=== PATIENT | male | born 1955 | race African-American/Black ===

== ENCOUNTER 2017-01-02 13:04 | Inpatient (IN) | payer OTHER ==
[~2017-01-02] VITALS: Ht 177.8 cm; Wt 76.7 kg
--- NOTE | ~2017-01-02 | HC ---
[facility] [place] [address] CONSULTATION Name: CARLOS BROWN JR Room #: 432-P ADM IN M.R.#: [id number] Admission: 01/02/17 Attend Phys: Doyle Choi MD Discharge: Date of : 53 Report #: [id number] THIS REPORT FOR: //name// CC: Doyle Choi [facility] physician/PCP REASON FOR CONSULTATION: Questionable renal infarct. REASON FOR ADMISSION: Abdominal pain. HISTORY OF PRESENT ILLNESS: The patient is a 61-year-old -Belizean male patient started to have diffuse abdominal pain this morning. This was worsening, not responding to numerous pain medications. He is known to have diabetes mellitus and hypertension. There are no reported hematochezia or melena with abdominal pain. No previous similar episodes. He is known to have remote history of pancreatitis and nephrolithiasis. He is also known to have alcohol abuse and liver hemangioma. He denies any drug abuse. He has an AICD placed in the past. On presentation to the Emergency Room, the CT scan was done under the possibility of renal infarct on the right side. The patient denies any hematuria. There is no history of hypercoagulable status. 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 He is also known to have AICD with a defibrillator placed. There was an issue of noncompliance in the past; however, the patient stated that he is very compliant with his medical care. Sees his primary care physician at the [facility]. He is not aware of any previous or current family history of hypercoagulable conditions. PAST MEDICAL HISTORY: 1. Hypertension. 2. Diabetes mellitus. 3. Alcoholic pancreatitis. 4. Cardiomyopathy with a pacemaker placement. 5. Nephrolithiasis. 6. Chronic obstructive pulmonary disease. 7. Liver hemangioma. 8. Kidney . ALLERGIES: No known drug allergies. SOCIAL HISTORY: He continues to smoke a pack a day. He did admit to marijuana use. REVIEW OF SYSTEMS: GENERAL: No fever or chills. CARDIOVASCULAR: No chest pain or palpitation. PULMONARY: No cough or hemoptysis. GASTROINTESTINAL: As per the history of present illness. [address] [address] CONSULTATION Name: CARLOS BROWN Room #: 432-P [facility] IN M.R.#: [id number] Admission: 01/02/17 Attend Phys: Doyle Choi MD Discharge: Date of : 53 Report #: [id number] GENITOURINARY: No frequency, no urgency or hematuria. MUSCULOSKELETAL: No back pain. No morning stiffness. SKIN: No rash. NEUROLOGICAL: No syncopal events. HEMATOLOGICAL: No previous history of DVT or PE or other hypercoagulable conditions. CURRENT MEDICATIONS: 1. Losartan. 2. Furosemide. 3. Metformin. 4. Atorvastatin. 5. Glipizide. 6. Carvedilol. FAMILY HISTORY: Significant for diabetes mellitus and hypertension. PHYSICAL EXAMINATION: VITAL SIGNS: Blood pressure is 150/83. HEAD AND NECK: No jugular venous distention, no bruit, no thyromegaly. CHEST: Clear to auscultation bilaterally. CARDIOVASCULAR: Regular with no rub detected. ABDOMEN: Soft, slightly tender, but no hepatosplenomegaly noted. LOWER EXTREMITIES: No edema with intact peripheral pulses. LABORATORY DATA: Reviewed. He does have a slightly elevated hemoglobin with a low platelet. Chemistry from today revealed a sodium of 132. Normal kidney function, glucose of 284 and calcium of 10.2, bilirubin was normal. Lipase was normal. UA and urine drug scan is pending. IMAGING: His abdomen CT were reviewed. ASSESSMENT, IMPRESSION AND PLAN: 1. Splenic infarct. 2. Abdominal pain. 3. Thrombocytopenia. 4. Elevated hemoglobin. 5. Questionable renal infarct.. 6. Remote history of alcohol abuse. 7. Hypertension. 8. Diabetes mellitus. 9. I personally reviewed the CT scan and I am not really sure about the patient's clinical presentation. 10. I will initiate the appropriate workup for the renal infarct including CPK, LDH, haptoglobin. His platelets was on the low side and this was alarming and could raise the possibility of renal, splenic infarcts. [facility] [address] [place] [address] CONSULTATION Name: CARLOS BROWN Room #: 432-P ADM IN M.R.#: [id number] Admission: 01/02/17 Attend Phys: Doyle Choi MD Discharge: Date of : 53 Report #: [id number] 11. Obtain all hypercoagulable workup. 12. Obtain abdominal ultrasound. 13. Obtain a UA with urine protein to creatinine ratio just in case there has been renal vein movement. 14. MRI, MRA. 15. Further evaluation will be dependent on the studies that I ordered. If this is truly renal infarct, will proceed with a conventional angiogram and or renal scan. 16. I would strongly recommend the urinary drug clean. 17. Obtain hematological consultation. We will continue to follow along. Meanwhile, the patient is being anticoagulated with heparin, all of the hypercoagulable workup will be sent before that. He has a normal kidney function and I see no reason for any IV fluids at this point. <ELECTRONICALLY SIGNED> By: Darrell Martínez MD 01/03/17 0844 13 0646 Cira Gallegos MD /nt
--- NOTE | ~2017-01-02 | HC ---
[facility] [place] [address] CONSULTATION Name: CARLOS BROWN JR Room #: 432-P [facility] IN M.R.#: [id number] Admission: 01/02/17 Attend Phys: Dolye Choi MD Discharge: 01/08/17 Date of : 53 Report #: [id number] THIS REPORT FOR: //name// CC: Doyle Choi [facility] physician/PCP DATE OF SERVICE: 01/04/2017 HISTORY OF PRESENT ILLNESS: The patient is a 61-year-old -Ugandan male who moved here from [place]. I am reviewing some of the old records and he states he has had a history of coronary artery disease. He seems to be of marginal historian. He says he came in with chest pain, but really this was abdominal pain and subsequently, found renal and splenic infarcts. The CAT scan suggests that there is an apical thrombus. The echo did not reveal this. I will review the echo, at least the initial report. It looks like he has had some wall motion abnormality. He states he had a limited infarct and 3 stents were placed in [facility]. 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 Apparently, he has been compliant with his medications. He denies chest pain or anginal complaints. His EKG shows sinus rhythm with possible anterolateral infarct. Left axis deviation. HOME MEDICATIONS: Losartan, Lasix, metformin, glipizide, Coreg and atorvastatin. Currently, his medications are metformin and glipizide 500 b.i.d. and 10. LABORATORY DATA: His creatinine is 0.8. His potassium is 3.7. Glucose is 220. Liver function tests were normal. His troponin was not performed. Lipids were favorable with an LDL of 97. Cholesterol 189, screen was positive for the opiates. H and H were 16 and 48, white count 6.3, platelets were 130. CT scan of the head was negative. Ultrasound of the carotids, no significant stenosis. CTA of the chest and abdomen suggest possibly an apical thrombus, dilated left ventricle, the echo Doppler, I will rereview, but did not suggest significant apical thrombus, multiple wall motion abnormality, anterior apical hypokinesis, EF was 30-35%, left atrium was dilated. There was an ICD lead present. PAST MEDICAL HISTORY: Positive for coronary artery disease with a prior stent. He states anterior infarct, history of alcoholic pancreatitis, history of alcohol abuse now currently minimal, COPD, continued tobacco use, nephrolithiasis, liver hemangioma, diabetes, ICD placement. ALLERGIES: No known drug allergies. SOCIAL HISTORY: He is an active smoker. He did quit alcohol abuse history. He is retired from [email or web address]. FAMILY HISTORY: Negative for premature coronary disease or clotting disorder. [facility] [address] [place] [address] CONSULTATION Name: CARLOS BROWN Room #: 432-P DIS IN M.R.#: [id number] Admission: 01/02/17 Attend Phys: Doyle Choi MD Discharge: 01/08/17 Date of : 53 Report #: [id number] PHYSICAL EXAMINATION: GENERAL: He is pleasant, alert. He seems appropriate. VITAL SIGNS: Blood pressure 140/84, pulse 70s. HEENT: Eyes reveal xanthelasmas. Pharynx is clear. NECK: Shows preserved upstrokes without JVD or bruits. LUNGS: Clear. CARDIOVASCULAR: Regular rate and rhythm, S1, S2. There is a faint holosystolic murmur. ABDOMEN: Soft. No HSM or abdominal bruit, slightly tender in the left upper quadrant. EXTREMITIES: Reveal trace of nonpitting edema. NEUROLOGIC: Nonfocal. SKIN: Warm and dry without xanthoma or ulcer. MUSCULOSKELETAL: No gross joint deformity. ASSESSMENT: 1. The renal and splenic infarcts of unclear etiology. 2. Suspected thromboembolic events, possibly secondary to a left ventricular apical clot. However, need to review echo, may in fact need PAMELLA, but this is holiday weekend and that will not occur until Friday. In the interim, we would continue with the anticoagulation, which is indicated at this point. 3. Hypertension. 4. Hypercholesterolemia. 5. Coronary artery disease with history of prior stents and infarct. 6. Chronic obstructive pulmonary disease. 7. History of alcohol abuse. RECOMMENDATIONS AND PLAN: Also awaiting further workup for coagulation disorder, coagulopathy by Dr. Bella of Hematology. I would continue heparin drip for now. I will review the echo performed 2 days ago. Thank you for on assist care of this patient. <ELECTRONICALLY SIGNED> By: Parker Vazquez MD, FACC 01/13/17 1544 1047 08 Parker Vazquez MD, FACC /nt
--- NOTE | ~2017-01-02 | HC ---
[facility] [place] [address] CONSULTATION Name: CARLOS BROWN JR Room #: 432-P ADM IN M.R.#: [id number] Admission: 01/02/17 Attend Phys: Doyle Choi MD Discharge: Date of : 53 Report #: [id number] THIS REPORT FOR: //name// CC: Cira Ronquillo MD [facility] physician/PCP Rodriguez Horta PRIMARY CARE DOCTOR: Dr. Rodriguez Horta at [facility] REASON FOR CONSULTATION: Possible splenic and renal infarcts. HISTORY OF PRESENT ILLNESS: The patient is a very pleasant 61-year-old gentleman originally from [place], [place] who moved up here as an with his family. He is now retired. Yesterday during the day, he had fairly sudden onset of diffuse frontal abdominal pain. It was across whole abdomen and is constant. He did not have cramping the the pain did not move across like a gas bubble. He felt it was much more to the front than to the back, unchanged by respiration, defecation, urination, change in position, leg lifting, or walking. It maybe about the center but maybe feels like it is a little bit higher in the abdomen, maybe almost going up to the epigastric region. Notes in the ER yesterday, he as part of his workup had a CAT scan, which raises a question for splenic infarct. Specifically, the test is compared to 06/29/2016, that showed cardiac prominences seen with pacemaker electrodes with mild bibasilar atelectasis. The liver showed fatty infiltrates with numerous hemangiomas. The spleen showed 2 wedge-shaped infarcts with decreased enhancement that were not present previously, and these were upon the lateral superior spleen suggesting splenic infarcts. Gallbladder contracted with no bile duct dilatation. Pancreas, no acute changes. Adrenals, normal size. Kidneys had perinephric stranding seen about the kidneys, also a moderate wedge-shaped area of decreased enhancement in the upper posterior aspect of the right kidney consistent with a renal infarct. Upper pole renal cyst on the right is suggested. Small non-obstructing calculus is seen in the lower pole of the left kidney. Retroperitoneal, there is aortic plaqueing without aneurysm or adenopathy. Bowel, there is no focal inflammatory changes, obstruction or bowel wall thickening or other acute process. No free air ascites, abscess or acute changes. Bladder looked fairly normal. Bones also showed no bony abnormalities. Prostate was enlarged. Inguinal canal slightly distended with fat suggesting small hernias. LABORATORY DATA: Admission labs tests are also notable for a white count 5.5, hemoglobin of 18.3, MCV of 91.7, hematocrit of 54.9, platelets 138. Differential normal. Repeat CBC shows normalization with a white count of 6.4, hemoglobin 17.5, hematocrit 51.9, and platelets of 154. Chemistries on admission shows BUN of 7, creatinine 0.7. calcium 9.4, ALT low at 16, [address] [address] CONSULTATION Name: CARLOS BROWN JR Room #: 432-P ADM IN M.R.#: [id number] Admission: 01/02/17 Attend Phys: Doyle Choi MD Discharge: Date of : 53 Report #: [id number] , albumin 3.4. Total bilirubin 0.1 Lactic acid 1.6. LDH 209. REVIEW OF SYSTEMS: The patient denies headache, visual changes, mentation difficulties that he is aware of, swallowing troubles, hearing difficulties, any significant weight change, any arm or leg swelling, any blood in his urine or stool, any dysuria, any diarrhea, any constipation, any new skin rash. PAST MEDICAL HISTORY: Reportedly for hypertension, diabetes mellitus, history of alcoholic pancreatitis, history of cardiomyopathy with a pacemaker placement, history of nephrolithiasis, history of COPD, liver hemangiomas and renal stones, nonobstructing. SOCIAL HISTORY: The patient is originally from [place], [place]. He lives here in town. 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 He smokes a pack per day. Does drink rare alcohol, but did not drink half of it several days ago, had drank heavily in the past, no street drugs. FAMILY HISTORY: Denies any history of cancer or blood abnormalities in mother, father, brother, sisters. Does have 2 children that are alive and well. At home, he has a . ALLERGIES: None known. MEDICATIONS: At this time in the hospital include heparin drip, ceftriaxone 1 g q. 24 hours, morphine sulfate p.r.n., ketorolac 1 time. Other tests ordered at this time pending include an echocardiogram, ultrasound of the renal Doppler, ultrasound carotids, ultrasound of both lower extremities. There may also be an MRI and MRA abdomen ordered. Also anti-nuclear antibody test, cardiolipin antibodies, homocysteine, factor V Leiden, anti-thrombin III, protein C functional, protein S. PHYSICAL EXAMINATION: VITAL SIGNS: Height is 5 feet 10, 178 cm; weight 169 pounds, which is 76.8 kilograms. Blood pressure is 127/60, O2 sat 98, respirations 16, pulse is 83, and temperature afebrile at 98.3. GENERAL: Mood of the patient is alert and pleasant. NEUROLOGIC: The patient's face is symmetrical. He is moving all extremities. Speech pattern is normal, though he is somewhat quiet. Oropharynx seemed clear. LUNGS: Clear, symmetric respirations without rhonchi, rales, or wheezes. HEART: Regular rate. ABDOMEN: Slightly obese, slightly generalized tender, no masses. Also, slight discomfort on rib compression, no pain on leg raise. NEUROLOGIC: Sensation normal to confrontation. Lcsw strength normal. [facility] [address] [place] [address] CONSULTATION Name: CARLOS BROWN JR Room #: 432-P [facility] IN [facility]#: [id number] Admission: 01/02/17 Attend Phys: Doyle Choi MD Discharge: Date of : 53 Report #: [id number] ASSESSMENT AND PLAN: 1. Interval splenic and possible renal infarct since June. Agree with workup that is including ultrasound of carotids, renal and also possible MRA abdomen. Also agree with use of heparin, anticoagulant workup. We will also add a dRVVT. No obvious source at this time. We will also write echo. May also need transesophageal echocardiogram. 1. Splenic and renal infarcts. Agree with workup as above. We will also add dRVVT. Agree with heparin anticoagulation at this point. 2. Questionable erythrocytosis, appears resolved after hydration. We will check an erythropoietin level but most likely this is secondary and not causing his infarcts. 3. History of hypertension, we will likely need to continue losartan, furosemide. 4. History of diabetes. We will likely need to continue metformin or other agents. Also, we will need to reinitiate glipizide at some point. 5. Hyperlipidemia. We will likely need to continue statin. 6. History of cardiomyopathy, has a pacemaker. Will also likely need to continue losartan and carvedilol. 7. Pain. Continue opiate pain meds. We will follow with you. <ELECTRONICALLY SIGNED> By: Franklin Bella MD 01/04/17 0709 0754 2041 Franklin Bella MD /nt
--- NOTE | ~2017-01-02 | EKG ---
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 : 1955 Requested By: Doyle Choi Order Number: [id number] MD: Howie Desai Measurements Intervals [place] Rate: 78 P: 70 WA: 196 QRS: -70 QRSD: 142 T: 99 QT: 407 QTc: 464 Interpretive Statements Sinus rhythm with ventricular pacing Compared to ECG 10/06/2015 05:04:22 Ventricular pacing is now present Electronically Signed On 01-05-2017 13:49:37 CDT by Howie Desai [email or web address] <ELECTRONICALLY SIGNED> By: Howie Desai MD, [facility] 01/05/17 1349 1610 1610 Howie Desai MD, [facility] /EPI
--- NOTE | ~2017-01-02 | H ---
[facility] [place] [address] HISTORY AND PHYSICAL Name: CARLOS BROWN JR Room #: 432-P ADM IN M.R.#: [id number] Admission: 01/02/17 Attend Phys: Doyle Choi MD Discharge: Date of : 53 Report #: [id number] THIS REPORT FOR: //name// CC: Doyle Choi [facility] physician/PCP DATE OF SERVICE: 01/02/2017 REASON FOR ADMISSION: Abdominal pain. HISTORY OF PRESENT ILLNESS: The patient is a pleasant 61-year-old gentleman. He reports he was in his usual state of health yesterday. Today, he started experiencing rather sudden onset abdominal pain located across his entire abdomen. He is fairly uncomfortable when seen by me today and continues to complain of abdominal pain despite receiving pain medication in the Emergency Room. He denies fevers, chills, nausea, diarrhea, dizziness, headaches, chest pain, skin rashes or other problems. He reports he has not been very compliant with his medications including aspirin. He does report he had a bowel movement earlier in the day, which was formed and normal. He denies any dysuria. He denies any blood in his stool or urine. His CT in the Emergency Room was concerning for splenic and renal infarcts and he has been admitted for further workup and treatment of his problems. PAST MEDICAL HISTORY: 1. Significant for diabetes. 2. Coronary artery disease. 3. History of pancreatitis. 4. Hypertension. 5. Alcoholism and alcohol abuse. 6. Liver hemangioma. 7. Early COPD. 8. Nephrolithiasis. PAST SURGICAL HISTORY: AICD placement. MEDICATIONS: Med rec presently unavailable. ALLERGIES: No known drug allergies. SOCIAL HISTORY: Active smoker about a pack a day, daily alcohol use. Reports he drank about half a can of beer yesterday. Denies any drug use. FAMILY HISTORY: Denies any significant history of blood clots in the family. REVIEW OF SYSTEMS: Twelve-point review of systems performed, negative except as mentioned in the history of present illness. [facility] [address] [place] [address] HISTORY AND PHYSICAL Name: CARLOS BROWN Room #: 432-P [facility] IN M.R.#: [id number] Admission: 01/02/17 Attend Phys: Doyle Choi MD Discharge: Date of : 53 Report #: [id number] PHYSICAL EXAMINATION: VITAL SIGNS: Afebrile, pulse of 86, respiratory rate 16, O2 sat 99% on room air, blood pressure is 152/86. GENERAL: Awake, alert, no acute distress. HEENT: Unremarkable. NECK: No JVD or thyromegaly. CARDIOVASCULAR: S1, S2 present, regular. RESPIRATORY: Air entry present bilaterally. ABDOMEN: Soft, tender to palpation all over without obvious guarding or rebound. Bowel sounds present. EXTREMITIES: Without edema. NEUROLOGIC: Awake, alert. No acute focal findings. SKIN: Unremarkable. No rash or lesions. LABORATORY INVESTIGATIONS: CBC notable for polycythemia. Hemoglobin is 18.3 as well as thrombocytopenia, platelets of 138. Differential appears to be within normal range. Chemistry with mild hyponatremia 132. Glucose elevated 284, calcium minimally elevated at 10.2. Urinalysis is pending. Tox screen with alcohol level less than 10. Imaging with an abdominal and pelvis CT demonstrates several splenic infarcts in the upper lateral spleen as well as renal infarct and possible right-sided pyelonephritis. ASSESSMENT AND PLAN: This is a 61-year-old gentleman presenting with abdominal pain of unclear etiology. 1. Abdominal pain. The patient does have a history of pancreatitis; however, does not have lab or CT evidence of the same at the present time. His pain is not clearly in the same location as infarcts noted on his CT. It is unclear if he may be having mesenteric ischemia or other contributing symptoms and we will try and proceed with further evaluation for the same as delineated below. 2. Splenic and renal infarcts concerning for thromboembolic source. The patient also has noted to be polycythemic which may be in relation to his longstanding smoking and COPD; however, this appears to be recently progressive. We will also involve hematology hence to opine on this and start the patient on a heparin infusion for the present time. An echocardiogram, carotid Dopplers and lower extremity Dopplers will be performed. We will also involve Vascular Surgery in his scan, try to attempt an MRA of his abdomen to assess for mesenteric ischemia and/or an embolic phenomena. 3. Diabetes. We will place the patient on sliding scale coverage. 4. Alcoholism. No present signs of alcohol withdrawal. 5. Coronary artery disease with in situ defibrillator. We will obtain an EKG. He does not have chest pain; however, does appear to have a questionable ST changes noted on lead in the Emergency Room. [address] [address] HISTORY AND PHYSICAL Name: CARLOS BROWN JR Room #: 432-[facility] IN M.R.#: [id number] Admission: 01/02/17 Attend Phys: Doyle Choi MD Discharge: Date of : 53 Report #: [id number] 6. Deep venous thrombosis prophylaxis unnecessary as he will be on full dose anticoagulation. <ELECTRONICALLY SIGNED> By: Doyle Choi MD 01/03/17 1142 1657 51 Doyle Choi MD /nt
--- NOTE | ~2017-01-02 | 2DMMODE ---
[facility] [address] [place] [address] 2 D/M-MODE ECHOCARDIOGRAM Name: CARLOS BRWON JR Room #: 432-P [facility] [place] .#: [id number] Admission: 01/02/17 Attend Phys: Doyle Choi, Discharge: Date of : 53 Date of Service: 01/03/17 1139 Report #: [id number] THIS REPORT FOR: //name// APPROVED REPORT Study performed: 01/03/2017 09:38:01 EXAM: Comprehensive 2D, Doppler, and color-flow Echocardiogram Patient Location: In-Patient Room #: 432 Status: routine Other Information Study Quality: Good Indications COPD Diabetes CAD Hypertension/HDD Echo Enhancing Agent Indication: Rule out thrombus Agent(s) / Amount(s) Used: Definity 3 cc 2D Dimensions RVDd: 42.27 mm LVEF(%): 34.90 (>50%) IVSd: 9.69 (7-11mm) LVOT Diam: 21.61 (18-24mm) LVDd: 61.49 mm PWd: 11.94 (7-11mm) LVDs: 51.02 (25-40mm) Aortic Root: 33.57 mm Reyes's LVEF: 34.90 % Volumes Left Atrial Volume (Systole) Single Plane 4CH: 62.23 mL Single Plane 2CH: 65.41 mL LA ESV Index: 37.00 mL/m2 Aortic Valve AoV Peak Peter.: 1.40 m/s AO Peak Gr.: 7.89 mmHg LVOT Max P.14 mmHg LVOT Max V: 0.89 m/s JEFE Vmax: 2.31 cm2 [facility] [address] [place] [address] 2 D/M-MODE ECHOCARDIOGRAM Name: CARLOS BROWN JR Room #: 432-P [facility]#: [id number] Admission: 01/02/17 Attend Phys: Doyle Choi, Discharge: Date of : 53 Date of Service: 01/03/17 1139 Report #: [id number] Mitral Valve E/A Ratio: 0.7 MV Decel. Time: 229.02 ms MV E Max Peter.: 0.59 m/s MV A Peter.: 0.80 m/s MV PHT: 66.41 ms IVRT: 115.34 ms Pulmonary Valve PV Peak Peter.: 1.15 m/s PV Peak Gr.: 5.25 mmHg Pulmonary Vein P Vein S: 0.47 m/s P Vein D: 0.35 m/s P Vein S/D Ratio: 1.34 Tricuspid Valve TR Peak Peter.: 2.47 m/s RAP Estimate: 5.00 mmHg TR Peak Gr.: 24.47 mmHg RVSP: 30.00 mmHg Left Ventricle The left ventricle is normal size. There is normal left ventricular wall thickness. Left ventricular systolic function is mild to moderately decreased. LVEF is 30-35%. with multiple segmental wall abnormalities Grade I - abnormal relaxation pattern. Right Ventricle Right ventricle is at the upper limits of normal. The right ventricular systolic function is normal. Device lead is present in the right ventricle. Atria Left atrium is dilated. Right atrium is at the upper limits of normal. AICD lead is present in the right atrium. Aortic Valve Aortic valve is mildly calcified. Trace aortic regurgitation. There is no aortic valvular stenosis. Mitral Valve The mitral valve is normal in structure. Trace mitral regurgitation. No evidence of mitral valve stenosis. Tricuspid Valve The tricuspid valve is normal in structure. Trace tricuspid [address] [address] 2 D/M-MODE ECHOCARDIOGRAM Name: CARLOS BROWN Room #: 432-P [facility] .R.#: [id number] Admission: 01/02/17 Attend Phys: Doyle Choi, Discharge: Date of : 53 Date of Service: 01/03/17 1139 Report #: [id number] regurgitation. Pulmonic Valve The pulmonary valve is normal in structure. Trace pulmonic regurgitation. Great Vessels The aortic root is normal in size. IVC is normal in size and collapses >50% with inspiration. Pericardium There is no pericardial effusion. <Conclusion> The left ventricle is normal size. LVEF is 30-35%. with multiple segmental wall abnormalities Left atrium is dilated. Right atrium is at the upper limits of normal. AICD lead is present in the right atrium. Aortic valve is mildly calcified. Trace aortic regurgitation. The mitral valve is normal in structure. Trace mitral regurgitation. The tricuspid valve is normal in structure. The pulmonary valve is normal in structure. The aortic root is normal in size. <ELECTRONICALLY SIGNED> By: Juan Clark MD 01/03/17 1139 1139 1139 Juan Clark MD /INF
[~2017-01-02 13:04] MED LIST: ACETAMINOPHEN325 M1 PO; ASPIRIN325 PO; ATORVASTATIN CA40 MG PO; CARVEDILOL12.5 MG PO; CLEOCIN HCL150 MG PO; COZAAR100 MG PO; DIABETA 1.25M1.25 M1 PO; FUROSEMIDE 20 M20 M1 PO; FUROSEMIDE 40 M40 M1 PO; GLIPIZIDE ER10 MG PO; GLUCOPHAGE XR750 MG PO; GLUCOPHAGE850 MG PO; IBUPROFEN 800800 M1 PO; K-DUR 20 MEQ T20 MEQ PO; KLOR-CON 1010 MEQ PO; MULTIVITAMINS PO; NORCO 5-325 TA1 EACH PO; ONDANSETRON HCL4 M2 PO; PENICILLIN VK500 M1 PO; PERCOCET 5-3251 EACH PO; PROAIR HFA8.5 GM INH; PROTONIX40 M1 PO; PROTONIX40 M2 PO; TRINATAL ULTRA1 EACH PO; ULTRAM 50MG TAB50 MG PO; VITAMIN B-1100 M1 PO; ZOFRAN ODT4 MG PO; ZOFRAN4 MG PO
[2017-01-02 13:11] VITALS: BP 165/103
[2017-01-02 13:37] LABS: ABSOLUTE NEUTROPHILS 3.7 thou/uL (1.4-8.2); BASOPHILS 0.4 % (0.0-2.0); EOSINOPHILS 1.8 % (0.0-3.0); HEMATOCRIT 54.9 % (42.0-52.0); HEMOGLOBIN 18.3 gm/dL (14.0-18.0); LYMPHOCYTES 22.7 % (24.0-44.0); MCH 30.6 pg (26.0-34.0); MCHC 33.4 g/dL (28.0-37.0); MCV 91.7 fL (80.0-100.0); MONOCYTES 8.6 % (1.0-8.0); PLATELET COUNT 138 thou/uL (150-400); POLYS 66.5 % (36.0-66.0); RBC 5.99 mil/uL (4.50-6.00); RDW 13.3 % (10.5-14.5); WBC 5.5 thou/uL (4.0-11.0)
[2017-01-02 13:40] LABS: MANUAL DIFF NO
[2017-01-02 13:57] LABS: ALBUMIN 3.8 g/dL (3.4-5.0); ALKALINE PHOSPHATASE 70 U/L (46-116); ANION GAP 11 mmol/L (7-16); BUN 5 mg/dL (7-18); CALCIUM 10.2 mg/dL (8.5-10.1); CHLORIDE 98 mmol/L (98-107); CO2 23 mmol/L (21-32); CREATININE 0.8 mg/dL (0.7-1.3); DIRECT BILIRUBIN 0.1 mg/dL (<0.1-0.3); GLUCOSE 284 mg/dL (74-106); POTASSIUM 4.3 mmol/L (3.5-5.1); SGOT 36 U/L (15-37); SGPT 16 U/L (30-65); SODIUM 132 mmol/L (136-145); TOTAL BILIRUBIN < 0.1 mg/dL (<0.1-1.0); TOTAL PROTEIN 8.2 g/dL (6.4-8.2)
[2017-01-02 17:41] VITALS: BP 151/83
[2017-01-02 17:59] LABS: APTT 29.3 Seconds (24.5-32.8); PROTIME 10.8 Seconds (9.3-11.4)
[2017-01-02 18:47] LABS: CHOLESTEROL 189 mg/dL (<200); HDL CHOLESTEROL 68 mg/dL (>40); LDL CHOLESTEROL 97 mg/dL (<100); TC:HDL 2.8 Ratio (Not establshd); TRIGLYCERIDE 121 mg/dL (<150); VLDL 24 mg/dL (<40)
[2017-01-02 20:00] VITALS: BP 156/85
[2017-01-02 21:46] LABS: URINE BILIRUBIN NEGATIVE (Negative); URINE BLOOD TRACE (Negative); URINE COLOR YELLOW; URINE GLUCOSE-RANDOM* 2+ (Negative); URINE KETONES 2+ (Negative); URINE LEUKOCYTES-REFLEX NEGATIVE (Negative); URINE PROTEIN (DIPSTICK) 2+ (Negative); URINE SPECIFIC GRAVITY 1.015 (1.003-1.035); URINE UROBILINOGEN 0.2 E.U./dl (0.2-1.0)
[2017-01-02 21:51] LABS: AMP/METHAMP Negative (Negative); BARBITURATES Negative (Negative); BENZODIAZEPINES Negative (Negative); COCAINE Negative (Negative); METHADONE Negative (Negative); OPIATES POSITIVE (Negative); PCP Negative (Negative); THC Negative (Negative)
[2017-01-02 21:58] LABS: CASTS None Seen /LPF (None Seen); SQUAMOUS 0-3 Few /LPF (0-3); URINE RBC None Seen /HPF (0-2); URINE WBC-REFLEX 0-5 Rare /HPF (0-5)
[2017-01-02 21:59] LABS: CRYSTALS None Seen /LPF (None Seen)
[2017-01-03 02:11] LABS: GLYCOHEMOGLOBIN (HGB A1C) 11.4 % (4.8-5.6)
[2017-01-03 03:13] VITALS: BP 151/86
[2017-01-03 04:09] LABS: URINE PROTEIN-RANDOM* 85.2 mg/dL (Not Estab.)
[2017-01-03 04:17] LABS: HEMATOCRIT 51.9 % (42.0-52.0); HEMOGLOBIN 17.5 gm/dL (14.0-18.0); MCH 30.5 pg (26.0-34.0); MCHC 33.7 g/dL (28.0-37.0); MCV 90.5 fL (80.0-100.0); RBC 5.73 mil/uL (4.50-6.00); RDW 13.4 % (10.5-14.5); WBC 6.4 thou/uL (4.0-11.0)
[2017-01-03 04:25] LABS: ALBUMIN 3.4 g/dL (3.4-5.0); CALCIUM 9.4 mg/dL (8.5-10.1); CREATININE 0.9 mg/dL (0.7-1.3); PHOSPHORUS 3.3 mg/dL (2.5-4.9); POTASSIUM 3.9 mmol/L (3.5-5.1)
[2017-01-03 07:44] VITALS: BP 127/60
[2017-01-03 16:34] VITALS: BP 136/67
[2017-01-03 20:00] VITALS: BP 149/87
[2017-01-03 21:11] LABS: ANTITHROMBIN III 108 % (75-135)
[2017-01-04 04:00] VITALS: BP 121/60
[2017-01-04 06:29] LABS: HEMATOCRIT 48.3 % (42.0-52.0); HEMOGLOBIN 16.3 gm/dL (14.0-18.0); MCH 30.2 pg (26.0-34.0); MCHC 33.7 g/dL (28.0-37.0); MCV 89.6 fL (80.0-100.0); RBC 5.39 mil/uL (4.50-6.00); RDW 13.1 % (10.5-14.5); WBC 6.3 thou/uL (4.0-11.0)
[2017-01-04 06:34] LABS: CALCIUM 9.2 mg/dL (8.5-10.1); CREATININE 0.8 mg/dL (0.7-1.3); POTASSIUM 3.7 mmol/L (3.5-5.1)
[2017-01-04 07:49] VITALS: BP 144/85
[2017-01-04 16:02] VITALS: BP 125/80
[2017-01-04 20:00] VITALS: BP 130/75
[2017-01-05 04:00] VITALS: BP 126/77
[2017-01-05 05:59] LABS: HEMATOCRIT 46.1 % (42.0-52.0); HEMOGLOBIN 15.6 gm/dL (14.0-18.0); MCH 30.6 pg (26.0-34.0); MCHC 33.9 g/dL (28.0-37.0); MCV 90.4 fL (80.0-100.0); RBC 5.1 mil/uL (4.50-6.00); RDW 13.1 % (10.5-14.5); WBC 6.3 thou/uL (4.0-11.0)
[2017-01-05 06:33] LABS: ALBUMIN 2.7 g/dL (3.4-5.0); CALCIUM 9.3 mg/dL (8.5-10.1); CREATININE 0.8 mg/dL (0.7-1.3); POTASSIUM 3.6 mmol/L (3.5-5.1); TOTAL BILIRUBIN 0.7 mg/dL (<0.1-1.0); TOTAL PROTEIN 6.5 g/dL (6.4-8.2)
[2017-01-05 07:54] VITALS: BP 115/70
[2017-01-05 15:32] VITALS: BP 123/77
[2017-01-05 20:00] VITALS: BP 134/80
[2017-01-06 04:30] VITALS: BP 134/82
[2017-01-06 05:52] LABS: INR 1.1; PROTIME 11.4 Seconds (9.3-11.4)
[2017-01-06 07:06] VITALS: BP 132/76
[2017-01-06 14:58] VITALS: BP 121/79
[2017-01-06 20:40] VITALS: BP 130/83
[2017-01-07 04:45] VITALS: BP 122/85
[2017-01-07 07:41] LABS: INR 1.3; PROTIME 13.3 Seconds (9.3-11.4)
[2017-01-07 07:48] LABS: APTT 69.2 Seconds (24.5-32.8)
[2017-01-07 08:24] VITALS: BP 142/92
[2017-01-07 11:05] VITALS: BP 142/92
[2017-01-07 16:04] VITALS: BP 128/68
[2017-01-07 19:35] VITALS: BP 112/71
[2017-01-08 04:52] VITALS: BP 113/70
[2017-01-08 06:28] LABS: INR 1.5; PROTIME 15.3 Seconds (9.3-11.4)
[2017-01-08 08:00] VITALS: BP 117/79
[2017-01-08] MEDS ORDERED: OXYCODONE HCL 55 MG PO (12:17)
[2017-01-08] MEDS ORDERED: ENOXAPARIN120 MG/0.1 SUBQ (12:17)
[2017-01-08] MEDS ORDERED: COUMADIN 5 MG TA5 M1 PO (12:17)
[2017-01-08] MEDS ORDERED: FUROSEMIDE 40 M40 M1 PO (12:23)
[2017-01-08 12:26] VITALS: BP 142/92
== END 2017-01-08 17:55 | disposition home or self-care (01) | DRG 699 ==
LOC: ER 13:04 → EROBS 16:21 → 4E 16:21
PROVIDERS: Emergency Medicine; Hospitalist; Internal Medicine Cardiovascular Disease
DX: N28.0 Ischemia and infarction of kidney (principal); I42.9 Cardiomyopathy, unspecified; E44.0 Moderate protein-calorie malnutrition; I24.0 Acute coronary thrombosis not resulting in myocardial infarction; D73.5 Infarction of spleen; E11.9 Type 2 diabetes mellitus without complications; I10 Essential (primary) hypertension; J44.9 Chronic obstructive pulmonary disease, unspecified; F17.210 Nicotine dependence, cigarettes, uncomplicated; D69.6 Thrombocytopenia, unspecified; I25.10 Atherosclerotic heart disease of native coronary artery without angina pectoris; E78.00 Pure hypercholesterolemia, unspecified; F10.20 Alcohol dependence, uncomplicated; D75.1 Secondary polycythemia; E78.5 Hyperlipidemia, unspecified; I48.91 Unspecified atrial fibrillation; I51.3 Intracardiac thrombosis, not elsewhere classified; I34.0 Nonrheumatic mitral (valve) insufficiency; Z68.24 Body mass index [BMI] 24.0-24.9, adult; Z95.810 Presence of automatic (implantable) cardiac defibrillator; Z82.49 Family history of ischemic heart disease and other diseases of the circulatory system; Z95.5 Presence of coronary angioplasty implant and graft; Z87.442 Personal history of urinary calculi; Z79.899 Other long term (current) drug therapy; Z83.3 Family history of diabetes mellitus
CPT/HCPCS: 10783

== ENCOUNTER 2017-08-10 21:42 | Emergency (ER) | payer OTHER ==
[~2017-08-10] VITALS: Ht 177.8 cm; Wt 83.9 kg
--- NOTE | ~2017-08-10 | EKG ---
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 : 1955 Requested By: Ta Gordillo Order Number: [id number] MD: Howie Desai Measurements Intervals [place] Rate: 68 P: 82 AR: 183 QRS: -65 QRSD: 145 T: 100 QT: 424 QTc: 451 Interpretive Statements Sinus rhythm Probable left atrial enlargement Left bundle branch block No previous ECGs available for comparison Electronically Signed On 08-11-2017 10:13:50 [employer]ILET ATTENDANT by Howie Desai [email or web address] <ELECTRONICALLY SIGNED> By: Howie Desai MD, [facility] 08/11/17 1013 2330 2330 Howie Desai MD, FACC /EPI
[~2017-08-10 21:42] MED LIST changes: +COUMADIN 5 MG TA5 M1 PO; +ENOXAPARIN120 MG/0.1 SUBQ; +OXYCODONE HCL 55 MG PO
[2017-08-10 22:23] LABS: URINE BILIRUBIN NEGATIVE (Negative); URINE BLOOD 1+ (Negative); URINE CLARITY CLEAR; URINE COLOR YELLOW; URINE GLUCOSE-RANDOM* 3+ (Negative); URINE KETONES NEGATIVE (Negative); URINE LEUKOCYTES-REFLEX NEGATIVE (Negative); URINE NITRITE-REFLEX NEGATIVE (Negative); URINE PROTEIN (DIPSTICK) 2+ (Negative); URINE UROBILINOGEN 0.2 E.U./dl (0.2-1.0)
[2017-08-10 22:34] LABS: BACTERIA-REFLEX None Seen /HPF (None Seen); CASTS None Seen /LPF (None Seen); CRYSTALS None Seen /LPF (None Seen); MUCUS None Seen strn/LPF (None Seen); SQUAMOUS None Seen /LPF (0-3); URINE RBC 0-2 Rare /HPF (0-2); URINE WBC-REFLEX None Seen /HPF (0-5)
[2017-08-10 23:31] LABS: MCH 30.6 pg (26.0-34.0)
[2017-08-10 23:33] LABS: HEMATOCRIT 54.4 % (42.0-52.0); HEMOGLOBIN 18.6 gm/dL (14.0-18.0); MCHC 34.3 g/dL (28.0-37.0); MCV 89.2 fL (80.0-100.0); PLATELET COUNT 203 thou/uL (150-400); RDW 12.9 % (10.5-14.5); WBC 5.5 thou/uL (4.0-11.0)
[2017-08-10 23:38] LABS: ANION GAP 7 mmol/L (7-16); BUN 11 mg/dL (7-18); CALCIUM 10.4 mg/dL (8.5-10.1); CHLORIDE 93 mmol/L (98-107); CO2 30 mmol/L (21-32); GLUCOSE 375 mg/dL (74-106); POTASSIUM 4.3 mmol/L (3.5-5.1); SODIUM 130 mmol/L (136-145)
[2017-08-10 23:46] LABS: ALBUMIN 3.4 g/dL (3.4-5.0); LIPASE 928 U/L (73-393); SGOT 13 U/L (15-37); SGPT 15 U/L (30-65); TOTAL BILIRUBIN 0.5 mg/dL (<0.1-1.0); TOTAL PROTEIN 8.1 g/dL (6.4-8.2); TROPONIN-I < 0.04 ng/mL (<0.06)
[2017-08-10 23:58] LABS: ABSOLUTE NEUTROPHILS 2.3 thou/uL (1.4-8.2); ATYPICAL LYMPHS 3 %
[2017-08-11] MEDS ORDERED: HYDROCODONE-AP1 EAC6 PO (00:54)
[2017-08-11] MEDS ORDERED: ZOFRAN ODT8 MG PO (00:54)
[2017-08-11 01:33] VITALS: BP 146/78
== END 2017-08-11 01:34 | disposition home or self-care (01) ==
LOC: ER 21:42
PROVIDERS: Emergency Medicine
DX: K85.90 Acute pancreatitis without necrosis or infection, unspecified (principal); E11.9 Type 2 diabetes mellitus without complications; D75.1 Secondary polycythemia; I10 Essential (primary) hypertension; F17.210 Nicotine dependence, cigarettes, uncomplicated; Z87.442 Personal history of urinary calculi

== ENCOUNTER 2017-08-12 17:13 | Inpatient (IN) | payer OTHER ==
[~2017-08-12] VITALS: Ht 177.8 cm; Wt 81.6 kg
[~2017-08-12 17:13] MED LIST changes: +HYDROCODONE-AP1 EAC6 PO; +ZOFRAN ODT8 MG PO
[2017-08-12 17:28] VITALS: BP 148/83
[2017-08-12 19:17] LABS: URINE BLOOD TRACE (Negative); URINE CLARITY CLEAR; URINE COLOR YELLOW; URINE GLUCOSE-RANDOM* 1+ (Negative); URINE KETONES 1+ (Negative); URINE LEUKOCYTES NEGATIVE (Negative); URINE NITRITE NEGATIVE (Negative); URINE PROTEIN (DIPSTICK) 2+ (Negative); URINE SPECIFIC GRAVITY >= 1.030 (1.005-1.035)
[2017-08-12 19:21] LABS: ICTOTEST (BILI CONFIRMATORY) Negative (Negative); URINE BILIRUBIN NEGATIVE (Negative)
[2017-08-12 19:25] LABS: SQUAMOUS 0-3 Few /LPF (0-3); URINE RBC 0-2 Rare /HPF (0-2)
[2017-08-12 19:26] LABS: BACTERIA 1-9 Few /HPF (None Seen); CASTS None Seen /LPF (None Seen); CRYSTALS None Seen /LPF (None Seen); URINE WBC 0-5 Rare /HPF (0-5)
[2017-08-12 21:09] LABS: HEMOGLOBIN 17.7 gm/dL (14.0-18.0); MCH 30.6 pg (26.0-34.0); MCHC 34.8 g/dL (28.0-37.0); MCV 88.1 fL (80.0-100.0); PLATELET COUNT 191 thou/uL (150-400); RBC 5.79 mil/uL (4.50-6.00); RDW 12.7 % (10.5-14.5); WBC 4.4 thou/uL (4.0-11.0)
[2017-08-12 21:24] LABS: CREATININE 0.8 mg/dL (0.7-1.3); POTASSIUM 3.9 mmol/L (3.5-5.1)
[2017-08-12 21:29] LABS: ALBUMIN 3.3 g/dL (3.4-5.0); DIRECT BILIRUBIN 0.2 mg/dL (<0.1-0.3); TOTAL BILIRUBIN 0.5 mg/dL (<0.1-1.0); TOTAL PROTEIN 7.6 g/dL (6.4-8.2)
[2017-08-12 21:50] VITALS: BP 138/84
[2017-08-12 21:51] LABS: ABSOLUTE NEUTROPHILS 2.1 thou/uL (1.4-8.2); ATYPICAL LYMPHS 2 %
[2017-08-13] VITALS (7 sets, daily range): BP systolic 116–138; BP diastolic 59–90
[2017-08-13 04:49] LABS: HEMATOCRIT 51.3 % (42.0-52.0); HEMOGLOBIN 17.4 gm/dL (14.0-18.0); MCH 30.2 pg (26.0-34.0); MCHC 33.8 g/dL (28.0-37.0); MCV 89.2 fL (80.0-100.0); RBC 5.75 mil/uL (4.50-6.00); RDW 12.6 % (10.5-14.5); WBC 4.7 thou/uL (4.0-11.0)
[2017-08-13 05:00] LABS: ALBUMIN 3.1 g/dL (3.4-5.0); CALCIUM 9.9 mg/dL (8.5-10.1); CREATININE 0.9 mg/dL (0.7-1.3); POTASSIUM 3.7 mmol/L (3.5-5.1); TOTAL BILIRUBIN 0.5 mg/dL (<0.1-1.0); TOTAL PROTEIN 7.3 g/dL (6.4-8.2)
[2017-08-13 10:01] LABS: INR 1.1; PROTIME 10.9 Seconds (9.3-11.4)
[2017-08-14 04:30] VITALS: BP 133/86
[2017-08-14 06:38] LABS: HEMATOCRIT 46.5 % (42.0-52.0); MCH 30.6 pg (26.0-34.0); MCHC 34.5 g/dL (28.0-37.0); MCV 88.6 fL (80.0-100.0); PLATELET COUNT 197 thou/uL (150-400); RBC 5.25 mil/uL (4.50-6.00); RDW 12.6 % (10.5-14.5); WBC 4.1 thou/uL (4.0-11.0)
[2017-08-14 07:01] LABS: ALBUMIN 2.7 g/dL (3.4-5.0); CALCIUM 9.1 mg/dL (8.5-10.1); CREATININE 0.8 mg/dL (0.7-1.3); MAGNESIUM 1.4 mg/dL (1.8-2.4); POTASSIUM 3.7 mmol/L (3.5-5.1); TOTAL BILIRUBIN 0.4 mg/dL (<0.1-1.0); TOTAL PROTEIN 6.3 g/dL (6.4-8.2)
[2017-08-14 08:10] VITALS: BP 140/92
[2017-08-14 08:23] VITALS: BP 145/92
[2017-08-14 08:59] LABS: CALCIUM 9.9 mg/dL (8.5-10.1); CREATININE 0.9 mg/dL (0.7-1.3)
[2017-08-14 09:10] LABS: PHOSPHORUS 3.1 mg/dL (2.5-4.9)
[2017-08-14 09:49] LABS: ABSOLUTE NEUTROPHILS 1.1 thou/uL (1.4-8.2); ANISOCYTOSIS SLIGHT; ATYPICAL LYMPHS 2 %
[2017-08-14] MEDS ORDERED: HYDROCODONE-AP1 EAC6 PO (13:56)
[2017-08-14 14:14] VITALS: BP 140/92
== END 2017-08-14 15:18 | disposition home or self-care (01) | DRG 438 ==
LOC: ER 17:13 → EROBS 21:48 → 4E 21:48 → EROBS 08-13 04:40 → 4E 08-13 12:06
PROVIDERS: Internal Medicine; Nurse Practitioner; Nurse Practitioner Family
DX: K85.90 Acute pancreatitis without necrosis or infection, unspecified (principal); E43 Unspecified severe protein-calorie malnutrition; E11.9 Type 2 diabetes mellitus without complications; I10 Essential (primary) hypertension; F17.210 Nicotine dependence, cigarettes, uncomplicated; E86.0 Dehydration; F10.10 Alcohol abuse, uncomplicated; I25.10 Atherosclerotic heart disease of native coronary artery without angina pectoris; D64.9 Anemia, unspecified; J44.9 Chronic obstructive pulmonary disease, unspecified; D18.09 Hemangioma of other sites; E83.42 Hypomagnesemia; Z82.49 Family history of ischemic heart disease and other diseases of the circulatory system; Z87.442 Personal history of urinary calculi; Z79.899 Other long term (current) drug therapy; Z83.3 Family history of diabetes mellitus
CPT/HCPCS: 10183